=== PATIENT | female | born 1990 | race African-American/Black ===

== ENCOUNTER 2021-01-27 11:29 | Emergency (ER) | payer MEDICARE ==
[~2021-01-27] VITALS: Ht 165.1 cm; Wt 62.8 kg
[2021-01-27] MEDS ORDERED: PREDNISONE20 MG PO (12:05)
[2021-01-27] MEDS ORDERED: LORATADINE-D 21 EACH PO (12:05)
== END 2021-01-27 12:43 | disposition home or self-care (01) ==
LOC: FSED 12:00
DX: R05 Cough (principal); J30.89 Other allergic rhinitis; R09.81 Nasal congestion
CPT/HCPCS: 81003; 81025; 99282